=== PATIENT | male | born 1980 | race Caucasian/White ===

== ENCOUNTER 2017-10-17 13:52 | Inpatient (IN) | payer SELFPAY ==
[~2017-10-17] VITALS: Ht 175.3 cm; Wt 75.3 kg
[2017-10-17 15:09] LABS: BASOPHIL % 0.3 % (0-2); PLATELET COUNT 271 x10^3mcL (130-400)
[2017-10-17 15:10] LABS: RED CELL DISTRIBUTION WIDTH 14.7 % (11.5-14.5)
[2017-10-17 15:14] LABS: AMPHETAMINE QUAL UR NONE DETECTED (NEG <=1000)
[2017-10-17 15:53] LABS: ALBUMIN 3.9 g/dL (3.4-5.0); ALKALINE PHOSPHATASE 34 U/L (46-116); ALT/SGPT 33 U/L (16-63); AST/SGOT 21 U/L (15-37); BILIRUBIN TOTAL 0.3 mg/dL (0.20-1.00); CALCIUM 8.8 mg/dL (8.5-10.1); CHLORIDE SERUM 100 mmol/L (98-107); CHOLESTEROL 165 mg/dL (<200); GFR1 > 60 mL/min; GLUCOSE SERUM 126 mg/dL (74-106); POTASSIUM SERUM 3.9 mmol/L (3.5-5.1); SODIUM SERUM 138 mmol/L (136-145); TOTAL PROTEIN, SERUM 7.3 g/dL (6.4-8.2)
[2017-10-17 15:58] LABS: CARBON DIOXIDE 28.7 mmol/L (21-32)
[2017-10-17 16:44] VITALS: BP 126/90
[2017-10-17 16:45] LABS: CHOLESTEROL/HDL RATIO 4.7; MAGNESIUM 2.1 mg/dL (1.8-2.4); PHOSPHOROUS 2.6 mg/dL (2.5-4.9)
[2017-10-17 16:46] VITALS: Ht 175.3 cm; Wt 75.3 kg
[2017-10-17 16:48] LABS: T3 TOTAL 0.74 ng/mL
[2017-10-17 16:51] LABS: FREE T4 0.95 ng/dL (0.76-1.46); FREE THYROXINE INDEX 2.1 ug/dL (1.4-4.5); T4(THYROXINE) 5.4 ug/dL (4.7-13.3)
[2017-10-17 17:44] VITALS: BP 126/90
[2017-10-17 19:40] VITALS: BP 113/66
[2017-10-18 08:03] LABS: BASOPHIL % 0.6 % (0-2); PLATELET COUNT 246 x10^3mcL (130-400)
[2017-10-18 08:04] LABS: RED CELL DISTRIBUTION WIDTH 14.9 % (11.5-14.5)
[2017-10-18 08:14] LABS: CALCIUM 8.2 mg/dL (8.5-10.1); CARBON DIOXIDE 28.2 mmol/L (21-32); CHLORIDE SERUM 104 mmol/L (98-107); CREATININE SERUM 0.9 mg/dL (0.7-1.3); GFR1 > 60 mL/min; GLUCOSE SERUM 136 mg/dL (74-106); MAGNESIUM 1.9 mg/dL (1.8-2.4); PHOSPHOROUS 3.1 mg/dL (2.5-4.9); POTASSIUM SERUM 3.9 mmol/L (3.5-5.1); SODIUM SERUM 140 mmol/L (136-145)
[2017-10-18 09:31] VITALS: BP 106/56
[2017-10-18 10:19] VITALS: BP 106/56
[2017-10-18 12:20] LABS: microscopic required? NO
[2017-10-18 12:29] LABS: urine erythrocyte NEGATIVE (NEGATIVE)
[2017-10-18] MEDS ORDERED: LIPI10 PO (15:19)
== END 2017-10-18 17:07 | disposition home or self-care (01) | DRG 74 ==
LOC: ED 13:52 → DU 16:03
PROVIDERS: Family Medicine; Specialist
DX: G90.8 Other disorders of autonomic nervous system (principal); J45.909 Unspecified asthma, uncomplicated; G43.909 Migraine, unspecified, not intractable, without status migrainosus; Z88.0 Allergy status to penicillin; E78.5 Hyperlipidemia, unspecified; D64.9 Anemia, unspecified; R55 Syncope and collapse; I37.1 Nonrheumatic pulmonary valve insufficiency; I07.1 Rheumatic tricuspid insufficiency
CPT/HCPCS: 83880; 84439; G0480; J7030; Q0092